=== PATIENT | female | born 1990 | race Caucasian/White ===

== ENCOUNTER → 2024-10-30 | Outpatient (CLI) | payer BC, SELFPAY ==
--- NOTE | 2024-10-30 16:50 | XR_ITS ---
Examination: Thoracic spine 3 views Technique one AP lateral coned lateral upper dorsal spine 3 views Date and time: October 30, 2024, 1713 hours INDICATIONS: Patient fell 10 days ago with injury to the back, back pain. FINDINGS: Thoracic dextroscoliosis 15 degrees No thoracic fracture No significant thoracic disc narrowing IMPRESSION: No thoracic fracture
--- NOTE | 2024-10-30 16:50 | XR_ITS ---
Examination: Lumbar spine, 5 views Technique: Lumbar spine AP, lateral, coned lateral lower lumbar spine, bilateral obliques 5 views Exam date and time: October 30, 2024, 1705 hours INDICATIONS: Patient fell 10 days ago with injury to the lower back, lower back pain. FINDINGS: Lumbar rotoscoliosis 12 degrees to the left No lumbar fracture. Moderate disc narrowing L5-S1 IMPRESSION: No lumbar fracture Moderate disc narrowing L5-S1
== END | disposition home or self-care (01) ==
PROVIDERS: PCP Nurse Practitioner Family; Referring Provider Nurse Practitioner Family; Visit Provider Nurse Practitioner Family
DX: M48.07 Spinal stenosis, lumbosacral region (principal); S39.92XA Unspecified injury of lower back, initial encounter; S29.9XXA Unspecified injury of thorax, initial encounter; W19.XXXA Unspecified fall, initial encounter
CPT/HCPCS: 72072; 72110